=== PATIENT | male | born 1985 | race Caucasian/White ===

== ENCOUNTER 2016-09-26 11:42 | Emergency (ER) | payer BC ==
[2016-09-26 12:13] VITALS: BP 147/68
[2016-09-26] MEDS ORDERED: Ondansetron TAB* 4 MG PO ONE (12:17)
[2016-09-26] MEDS ORDERED: Ibuprofen TAB* 600 MG PO ONE (12:17)
--- NOTE | 2016-09-26 12:33 | UC ---
Throat Pain/Nasal Kristian HPI - HPI Summary HPI Summary: son was dx with strep throat here on Monday. He began having sore throat and fever yesterday. He has had vomiting as well. - History of Current Complaint Chief Complaint: UCGeneralIllness Stated Complaint: FEVER 103,ACHY,VOMITING,SORE THROAT Time Seen by Provider: 09/26/16 12:17 Hx Obtained From: Patient Onset/Duration: Sudden Onset, Lasting Hours Severity: Severe Cough: None Associated Signs & Symptoms: Positive: Dysphagia, Fever, Vomiting. Negative: FB Sensation, Drooling, Wheezing, Hoarseness, Sinus Discomfort, Nasal Discharge , Rash - Allergies/Home Medications Allergies/Adverse Reactions: Allergies Allergy/AdvReac Type Severity Reaction Status Date / Time No Known Allergies Allergy Verified 09/26/16 12:09 Home Medications: Home Medications Acetaminophen [Acetaminophen Extra Stren] 1,000 mg PO Q6H PRN 09/26/16 [History Confirmed 09/26/16] PMH/Surg Hx/FS Hx/Imm Hx Previously Healthy: Yes Endocrine History Of: Denies: Diabetes - Surgical History Surgical History: Yes Surgery Procedure, Year, and Place: [facility] - Family History Known Family History: Positive: None Negative: Diabetes - Social History Occupation: Employed Full-time Alcohol Use: Rare Substance Use Type: None Smoking Status (MU): Former Smoker When Did the Patient Quit Smoking/Using Tobacco: AT A YOUNG AGE Review of Systems All Other Systems Reviewed And Are Negative: Yes Physical Exam Triage Information Reviewed: Yes Appearance: Obese Vital Signs: Initial Vital Signs Temp 102 F 09/26/16 12:06 Pulse 130 09/26/16 12:06 Resp 20 09/26/16 12:06 BP 147/68 09/26/16 12:06 Pulse Ox 100 09/26/16 12:06 Vital Signs Reviewed: Yes Eye Exam: Normal Eyes: Positive: Conjunctiva Clear. Negative: Conjunctiva Inflamed ENT: Positive: Pharyngeal erythema, Tonsillar swelling, Tonsillar exudate. Negative: Nasal drainage, TMs normal, TM bulging, TM dull, TM red, Trismus, Muffled/hoarse voice Neck exam: Normal Neck: Positive: Supple, Nontender, Tenderness @ - dl submandibular area. Respiratory Exam: Normal Respiratory: Positive: Chest non-tender, Lungs clear, Normal breath sounds, No respiratory distress, No accessory muscle use. Negative: Respiratory distress, Decreased breath sounds, Accessory muscle use, Crackles, Rhonchi Cardiovascular Exam: Normal Cardiovascular: Positive: RRR, No Murmur, Pulses Normal Abdominal Exam: Normal Abdomen Description: Positive: Nontender, No Organomegaly, Soft Musculoskeletal Exam: Normal Musculoskeletal: Positive: Strength Intact, ROM Intact. Negative: No Edema Neurological Exam: Normal Neurological: Positive: Alert, Muscle Tone Normal Psychological Exam: Normal Skin Exam: Normal Skin: Negative: rashes Throat Pain/Nasal Course/Dx - Course Course Of Treatment: sore throat, fever, family exposure to strep. - Differential Dx/Diagnosis Differential Diagnosis/HQI/PQRI: Epiglottitis, Foreign Body, Influenza, Laryngitis, Zackary's Angina, Mononucleosis, Otitis Media, Peritonsillar Abscess , Pharyngitis, Sinusitis, Tonsillitis, URI Provider Diagnoses: strep throat. Discharge - Discharge Plan Condition: Stable Disposition: HOME Prescriptions: Amoxicillin CAP* [Amoxicillin 500 MG CAP*] 500 mg PO TID #30 cap Ondansetron ODT TAB* [Zofran 4 MG Odt TAB*] 4 mg PO Q8H PRN #8 tab.odt PRN Reason: Nausea Patient Education Materials: Strep Throat (ED) Referrals: No Primary Care Phys,NOPCP [Primary Care Provider] - Additional Instructions: return here for any worsening.
[2016-09-26] MEDS ORDERED: Ondansetron ODT TAB* 4 MG ONE (12:50)
[2016-09-26] MEDS ORDERED: Ondansetron ODT TAB* 4 MG PO ONE (12:53)
== END 2016-09-26 13:03 | disposition home or self-care (01) ==
LOC: UCCORT 11:42
DX: J02.0 Streptococcal pharyngitis (principal); Z87.891 Personal history of nicotine dependence; E66.9 Obesity, unspecified
CPT/HCPCS: 99212; A9270-GY; G0463